=== PATIENT | female | born 1990 | race Caucasian/White ===

== ENCOUNTER 2017-06-03 09:09 | Day surgery (SDC) | payer BC, OTHER ==
[~2017-06-03 09:09] MED LIST: ACETAMINOPHEN 1,000 MG/100 ML BTL IV ONE
[2017-06-03] MEDS ORDERED: SUCCINYLCHOLINE 20 MG/ML 10ML IVP ONE (09:10)
[2017-06-03] MEDS ORDERED: KETOROLAC 30 MG/ML VIAL IVP ONE (09:10)
[2017-06-03] MEDS ORDERED: NEOSTIGMINE 1 MG/1 ML,10ML VIAL IV ONE (09:10)
[2017-06-03] MEDS ORDERED: ACETAMINOPHEN W/ CODEINE 300MG/30MG TABLET PO ONE (09:10)
[2017-06-03] MEDS ORDERED: SEVOFLURANE 250 ML INH ONE (09:10)
[2017-06-03] MEDS ORDERED: FENTANYL PF 100MCG/2ML VIAL IV ONE (09:10)
[2017-06-03] MEDS ORDERED: BUPIVACAINE 0.75% W/EPI MPF 30ML VIAL IVP ONE (09:10)
[2017-06-03] MEDS ORDERED: ONDANSETRON HCL IV 4 MG/2 ML VIAL IVP ONE ×2 (09:10)
[2017-06-03] MEDS ORDERED: PROMETHAZINE HCL 25 MG/ML VIAL IVP ONE (09:10)
[2017-06-03] MEDS ORDERED: GLYCOPYRROLATE 0.2 MG/ML ML IV ONE (09:10)
[2017-06-03] MEDS ORDERED: LIDOCAINE 2% MDV (20MG/ML) 20ML VIAL IV ONE (09:10)
[2017-06-03] MEDS ORDERED: MIDAZOLAM HCL 2MG/2ML VIAL IV ONE (09:10)
[2017-06-03] MEDS ORDERED: ROCURONIUM BROMIDE 50MG/5ML VIAL IV ONE (09:10)
[2017-06-03] MEDS ORDERED: PROPOFOL 10 MG/ML VIAL IV ONE (09:10)
[2017-06-03] MEDS ORDERED: HYDROMORPHONE HCL 2 MG/ML VIAL IV ONE (09:10)
--- NOTE | 2017-06-04 17:50 | Operative Note ---
DATE OF SURGERY: 06/03/2017 SURGEON: Gadiel Desir DO REFERRING: Eddie Rodriguez DO PREOPERATIVE DIAGNOSIS: Acromioclavicular arthrosis of the right shoulder. POSTOPERATIVE DIAGNOSIS: Acromioclavicular arthrosis of the right shoulder. OPERATIVE PROCEDURE: Katiuska procedure of the right shoulder (resection right distal clavicle). DESCRIPTION: This 27-year-old female was taken to the operating room and placed in the supine position on the operating room table. General anesthesia was induced. She was placed in the beach chair position with all bony prominences well padded and head well secured. The right shoulder prepped with Hibiclens and draped in the usual sterile fashion. An incision was made in Jann's lines just lateral to the acromioclavicular joint and dissection was carried down to the skin and subcutaneous tissue. Hemostasis obtained with the electrocautery. The subcutaneous tissue divided to expose the joint capsule. A "T" type incision was made in the joint capsule, and the subperiosteal elevation was carried out over the end of the clavicle. We then resected about 0.75 cm of the distal clavicle using an oscillating saw. Power rasp was then used to further smooth and contour the cut into the clavicle. We removed the remaining disrupted acromioclavicular disk and copiously irrigated the joint. There was plenty of room in the acromioclavicular joint at the completion, and there was no evidence of impingement. The joint was subsequently repaired with periosteum and joint capsule being sutured with #1 Vicryl, and the subcutaneous tissue closed with 4-0 Vicryl, and skin with a subcuticular 4-0 nylon suture. Sterile dressings were applied. We also infiltrated 0.75% Marcaine into the joint and subcutaneous tissue at the completion of the procedure. The patient was then taken to the recovery room in satisfactory condition. GROSS PATHOLOGY: This patient demonstrated disruption of the acromioclavicular disk. The patient did not appear to have arthritic change at the articular surface. CC: Eddie Rodriguez DO [facility]ITAL[facility]
== END 2017-06-03 13:00 | disposition home or self-care (01) ==
LOC: SUR 09:09
PROVIDERS: ATTEND Orthopaedic Surgery
DX: M19.011 Primary osteoarthritis, right shoulder (principal)
CPT/HCPCS: 23120; 00450; 81025; J1885; J2405; J3010; J1170; J3490; J0330; J2550; J2710

== ENCOUNTER 2018-03-06 14:39 | Emergency (ER) | payer BC, OTHER ==
[2018-03-06] MEDS ORDERED: MORPHINE SULFATE 10 MG/ML VIAL IVP ONE ×2 (14:45→15:47)
[2018-03-06] MEDS ORDERED: EYE IRRIGATION SOLU. (SOD BOR/BORIC AC/H20/NACL) 118ML BTL OPTH ONE (14:47)
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
[2018-03-06] MEDS ORDERED: 0.9 % SODIUM CHLORIDE 1000ML 1,000 ML IV SCH (15:00)
== END 2018-03-06 15:40 | disposition short-term general hospital (02) ==
LOC: ER 14:39
DX: T20.29XA Burn of second degree of multiple sites of head, face, and neck, initial encounter (principal); T23.071A Burn of unspecified degree of right wrist, initial encounter; R07.89 Other chest pain; X02.8XXA Other exposure to controlled fire in building or structure, initial encounter
CPT/HCPCS: 99285 ×2; 96376; 96374; J2270; J7030